=== PATIENT | female | born 1955 | race Caucasian/White ===

== ENCOUNTER → 2017-01-31 | Outpatient (CLI) | payer OTHER ==
[~2017-01-31] MED LIST: ATORVASTATIN CA10 MG PO; ESOMEPRAZOLE MA40 MG PO; FLEXERIL5 MG PO; FUROSEMIDE20 MG PO; METFORMIN HCL500 MG PO; METOPROLOL SUCC50 MG PO; MOBIC15 MG PO; MORPHINE SULFAT15 M1 PO; MORPHINE SULFAT15 MG PO; NEURONTIN300 MG PO; SERTRALINE HCL100 MG PO; SYMBICORT60 INHALAT IH; VOLTAREN75 MG PO
== END | disposition home or self-care (01) ==
LOC: RAD 13:46
DX: M48.07 Spinal stenosis, lumbosacral region (principal); M41.86 Other forms of scoliosis, lumbar region; M54.31 Sciatica, right side; Z98.1 Arthrodesis status; Z98.890 Other specified postprocedural states
CPT/HCPCS: 62304; 72132